=== PATIENT | female | born 1940 | race Caucasian/White ===

== ENCOUNTER 2020-10-09 12:51 | Emergency (ER) | payer OTHER ==
[~2020-10-09] VITALS: Ht 149.9 cm; Wt 67.3 kg
[2020-10-09 13:16] LABS: BASOPHILS % (AUTO) 0.3 % (0.0-2.0); EOSINOPHILS % (AUTO) 0.8 % (1.0-6.0); HEMATOCRIT 42.1 % (36-46); HEMOGLOBIN 13.7 g/dL (12.0-16.0); LYMPHOCYTES # (AUTO) 2.3 K/uL (1.0-4.8); LYMPHOCYTES % (AUTO) 30.4 % (22.0-44.0); MEAN CORPUSCULAR HEMOGLOBIN 30.3 pg (26.0-34.0); MEAN CORPUSCULAR HGB CONC 32.4 G/dL (31.0-37.0); MEAN CORPUSCULAR VOLUME 93 fL (80-100); MONOCYTES # (AUTO) 0.5 K/uL (0.1-1.0); MONOCYTES % (AUTO) 6.7 % (2.0-9.0); NEUTROPHILS # (AUTO) 4.7 K/uL (1.8-7.7); NEUTROPHILS % (AUTO) 61.8 % (40.0-70.0); PLATELET COUNT (AUTO) 281 K/uL (150-450); RED BLOOD CELL COUNT(AUTO) 4.51 MIL/uL (4.00-5.20); RED CELL DISTRIBUTION WIDTH 13.6 % (11.5-14.5)
[2020-10-09 13:28] LABS: CALCIUM, TOTAL 8.7 mg/dL (8.8-10.5); CREATININE 0.97 mg/dL (0.60-1.30); POTASSIUM 3.7 mmol/L (3.5-5.1)
[2020-10-09 13:30] LABS: INR 1.1 (0.9-1.1); PROTHROMBIN TIME 11.6 SEC (9.4-11.6)
[2020-10-09 13:34] LABS: ALBUMIN 3.8 g/dL (3.4-5.0); BILIRUBIN,TOTAL 0.9 mg/dL (0.1-1.0); TOTAL PROTEIN, SERUM 7.5 g/dL (6.4-8.2)
[2020-10-09] MEDS ORDERED: ASPIRIN 300 MG RECTAL SUPPOSITORY PR ONE ×2 (14:00→16:30)
[2020-10-09] MEDS ORDERED: ASPIRIN 325 MG TABLET PO ONE (14:00)
[2020-10-09] MEDS ORDERED: ESMOLOL HCL 2,500 MG/NACL 250 ML IV PRN (14:45)
[2020-10-09 15:13] LABS: COVID AG,FIA SOURCE NASOPHARYNGEAL
[2020-10-09 16:59] VITALS: BP 145/88
== END 2020-10-09 17:43 ==
LOC: EMS 12:52
DX: I63.9 Cerebral infarction, unspecified (principal); I77.71 Dissection of carotid artery; R79.89 Other specified abnormal findings of blood chemistry; Z20.822 Contact with and (suspected) exposure to COVID-19
CPT/HCPCS: 70450; 70496; 71045; 80053; 82962; 83880; 84484; 85025; 85610; 85730; 87426; 93005; 99291; U0003; 36415-L1; 36415-TC